=== PATIENT | male | born 1995 | race Caucasian/White ===

== ENCOUNTER 2021-01-01 18:49 | Emergency (ER) | payer SELFPAY ==
[2021-01-01] MEDS ORDERED: Proparacaine 0.5% Ophth Soln 15 ML Bottle EYELF STA (19:20)
[2021-01-01] MEDS ORDERED: Fluorescein 1 MG Ophth Strip EYELF ONE (19:20)
[2021-01-01] MEDS ORDERED: Erythromycin Base 0.5% Ophth Oint 1 GM Tube EYELF STA (19:39)
--- NOTE | 2021-01-01 19:45 | EDM.PDOC ---
ED HPI GENERAL MEDICAL PROBLEM - General Chief Complaint: Eye Problems Stated Complaint: EYE PAIN Time Seen by Provider: 01/01/21 18:50 Source of Information: Reports: Patient, Significant Other (Girlfriend) History Limitations: Reports: No Limitations - History of Present Illness INITIAL COMMENTS - FREE TEXT/NARRATIVE: Mr. Cohen is a very pleasant 25-year-old gentleman who now presents to the ED stating that he developed a foreign body sensation with left eye tearing around 17:00 this evening. He states that he was grinding metal this morning, but was wearing safety goggles. He flushed his eye with water and applied a single drop of Visine, without relief of his symptoms. He denies having photophobia. No prior left eye foreign body issues. Here in the ED, the patient is found to be hemodynamically stable, afebrile, saturating 99% on room air. He appears to be slightly uncomfortable, but is in no acute distress. Prior to this evening, the patient denies having a recent fever, chills, sore throat, ear pain, nasal or sinus congestion, cough, dyspnea, chest pain, palpitations, nausea, vomiting, constipation, diarrhea, abdominal pain, urinary symptoms, recent weight gain or weight loss, recent bloody bowel movements or black bowel movements, recent joint aches, headaches, or rashes. 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 The patient does not have a PCP. Left Eye Pain Score (Numeric/FACES): 3 - Related Data Allergies Allergy/AdvReac Type Severity Reaction Status Date / Time No Known Allergies Allergy Verified 01/01/21 19:07 Home Meds: Home Meds Famotidine 40 mg PO DAILY 01/01/21 [History] Past Medical History Gastrointestinal History: Reports: GERD - Past Surgical History GI Surgical History: Reports: Cholecystectomy (around 2014) Social & Family History - Tobacco Use Tobacco Use Status *Q: Current Every Day Tobacco User Years of Tobacco use: 7 Packs/Tins Daily: 0.5 - Caffeine Use Caffeine Use: Reports: None - Recreational Drug Use Recreational Drug Use: No ED ROS GENERAL - Review of Systems Review Of Systems: Comprehensive ROS is negative, except as noted in HPI. ED EXAM GENERAL W FULL EYE - Physical Exam Exam: See Below Exam Limited By: No Limitations General Appearance: Alert, WD/WN, No Apparent Distress Eyelids: Right: Normal Appearance, Left: Edema, Lid Everted for Exam Conjunctiva & Sclera: Right: Normal Appearance, Left: Conjunctival Edema (very mild), Injected Cornea Exam: Left: Foreign Body (just inferior to the 3:00 position), Examined with Flourescein (Lugo lamp), Other (Slit lamp exam) Extraocular Movements: Bilateral: Intact Pupils: Normal Accommodation Pupillary Size: Bilateral: 5 mm Pupillary Reaction: Bilateral: Brisk Anterior Chamber: Bilateral: Normal Appearance ED EYE w/ Add Procedure - Eye Procedure Alcaine Drops Administered: Yes (Proparacaine to the left eye) Eye FB Removal: Removal w/ Cotton Swab, Removal w/ Needle (FB dislodged witha 27 Ga under slit lamp) Antibiotic Oinment/Drps Admin: Left Eye (Erythromycin ointment) Progress: The patient tolerated the procedure well Course - Vital Signs Last Recorded V/S: Last Vital Signs Temp 36.7 C 01/01/21 19:03 Pulse 90 01/01/21 19:03 Resp 13 01/01/21 19:03 BP 137/86 01/01/21 19:03 Pulse Ox 99 01/01/21 19:03 - Orders/Labs/Meds Meds: Medications Discontinued Medications Generic Name Dose Route Start Last Admin Trade Name Allan PRN Reason Stop Dose Admin Erythromycin 1 gm 01/01/21 19:39 01/01/21 19:44 Erythromycin Base 0.5% Ophth Oint 1 Gm Tube EYELF 01/01/21 19:40 1 applic ONETIME STA Administration Fluorescein Sodium 1 mg 01/01/21 19:20 01/01/21 19:39 Fluorescein 1 Mg Ophth Strip EYELF 01/01/21 19:21 1 mg ONETIME ONE Administration Proparacaine HCl 1 ml 01/01/21 19:20 01/01/21 19:39 Proparacaine 0.5% Ophth Soln 15 Ml Bottle EYELF 01/01/21 19:21 2 drop ONETIME STA Administration - Re-Assessments/Exams Free Text/Narrative Re-Assessment/Exam: 01/01/21 19:39 As above, the patient was grinding some metal this morning, while wearing safety goggles, but then felt a foreign body sensation to his left eye with watering, but no photophobia, around 17:00 this evening. He flushed his eye with water and applied 1 drop of Visine, without relief. On examination with fluorescein and a Lugo lamp here in the ED, I found no evidence of a corneal abrasion, and found no foreign bodies either on the cornea or under the eyelids, however, under slit-lamp examination, I found a somewhat opaque comma-shaped foreign body adherent to the cornea just inferior to the 3 o'clock position. It did not cast a shadow, therefore I do not believe it was metal. I was able to remove it with a 27-gauge needle and a moistened cotton tip swab. Ora CORTES will instill some erythromycin ointment into the patient's left eye and show him how to do it, then give him the tube. He should apply it up to 6 times a day for the next few days to help soothe the eye. If he still has a foreign body sensation by Monday, I would like him to follow-up with an eye doctor for reevaluation. The patient is agreeable with this plan. Departure - Departure Time of Disposition: 19:41 Disposition: Home, Self-Care 01 Condition: Good Clinical Impression: Foreign body of left cornea - Discharge Information *PRESCRIPTION DRUG MONITORING PROGRAM REVIEWED*: Not Applicable *COPY OF PRESCRIPTION DRUG MONITORING REPORT IN PATIENT SONIYA: Not Applicable Instructions: Eye Foreign Body, [id number] Referrals: PCP,None [Primary Care Provider] - Forms: ED Department Discharge Additional Instructions: You were seen in the emergency room after developing a foreign body sensation to your left eye this evening, after grinding metal this morning. On examination of your left eye under slit lamp, a foreign body was found near the 3 o'clock position. It was removed in the ER. Your nurse instilled some antibiotic ointment into your left eye, showed you how to do it, and gave you the tube of antibiotic ointment. You should instill a 1 cm ribbon of erythromycin ointment into your lower left eyelid up to 6 times a day, for the next few days, to help soothe your eye. If you still have a foreign body sensation by 01/04/2021, we recommend that you follow-up with an eye doctor for reevaluation. If any other problems, please do not hesitate to return to the ER. Sepsis Event Note (ED) - Evaluation Sepsis Screening Result: No Definite Risk - Focused Exam Vital Signs: Vital Signs Temp Pulse Resp BP Pulse Ox 01/01/21 19:03 36.7 C 90 13 137/86 99
== END 2021-01-01 19:54 | disposition home or self-care (01) ==
LOC: JD.ED 18:49
DX: T15.02XA Foreign body in cornea, left eye, initial encounter (principal); K21.9 Gastro-esophageal reflux disease without esophagitis; Z72.0 Tobacco use; Z79.899 Other long term (current) drug therapy
CPT/HCPCS: 65222; 99283; A9270; 65220; 99282